=== PATIENT | female | born 1985 | race Asian ===

== ENCOUNTER 2023-05-02 11:22 | Outpatient (CLI) | payer BC ==
[2023-05-02] MEDS ORDERED: NO HOME MEDS (16:23)
== END 2023-05-02 23:59 | disposition home or self-care (01) ==
LOC: RAD 11:22
PROVIDERS: ATTEND Emergency Medicine
DX: K80.20 Calculus of gallbladder without cholecystitis without obstruction (principal); R10.11 Right upper quadrant pain
CPT/HCPCS: 76700

== ENCOUNTER 2023-05-02 12:19 | Inpatient (IN) | payer BC ==
[~2023-05-02] VITALS: Ht 157.5 cm; Wt 65.0 kg
[2023-05-02 12:40] LABS: BASOPHILS % (AUTO) 0.2 % (0-1); EOSINOPHILS # (AUTO) 0.1 X10'3 (0-0.9); EOSINOPHILS % (AUTO) 1.1 % (0-6); HEMATOCRIT 41.8 % (35.0-45.0); HEMOGLOBIN 14.2 g/dl (12.0-16.0); LYMPHOCYTES # (AUTO) 3.4 X10'3 (1.1-4.8); LYMPHOCYTES % (AUTO) 45.1 % (21-51); MEAN CORPUSCULAR HEMOGLOBIN 31.1 PG (27.0-31.0); MEAN CORPUSCULAR VOLUME 91.3 FL (78-98); MEAN PLATELET VOLUME 9.4 FL (7.4-10.4); MONOCYTES # (AUTO) 0.6 X10'3 (0-0.9); MONOCYTES % (AUTO) 7.6 % (2-12); NEUTROPHILS # (AUTO) 3.4 X10'3 (1.8-7.7); PLATELET COUNT 221 X10'3 (140-440); RED BLOOD COUNT 4.58 X10'6 (4.20-5.60); WHITE BLOOD COUNT 7.5 X10'3 (4.5-11.0)
[2023-05-02 13:05] LABS: ALANINE AMINOTRANSFERASE 21 U/L (12-78); ALBUMIN 4.1 G/DL (3.4-5.0); ALKALINE PHOSPHATASE 50 IU/L (46-116); AMYLASE 60 U/L (25-115); ANION GAP 7 (8-16); ASPARTATE AMINO TRANSFERASE 17 U/L (10-37); BILIRUBIN,TOTAL 0.4 MG/DL (0.1-1.0); BLOOD UREA NITROGEN 9 MG/DL (7-18); BUN/CREATININE RATIO 14.1 (10.0-20.0); CALCIUM 8.9 MG/DL (8.5-10.1); CHLORIDE 103 MMOL/L (99-107); CREATININE 0.64 MG/DL (0.40-0.90); GLUCOSE 91 MG/DL (70-104); POTASSIUM 3.7 MMOL/L (3.5-5.1); SODIUM 137 MMOL/L (135-145); TOTAL CARBON DIOXIDE 26.6 MMOL/L (24-32); TOTAL PROTEIN 8.3 G/DL (6.4-8.2); eCRCL 97 ML/MIN; eGFR > 90 ML/MIN
[2023-05-02] MEDS ORDERED: piperacillin/tazo 3.375gm/50ml 50 ML IV ONE (14:35)
[2023-05-02] MEDS ORDERED: acetaminophen 325mg tablet PO PRN (15:00)
[2023-05-02] MEDS ORDERED: ondansetron/PF 4mg/2ml inj IV PRN (15:00)
[2023-05-02] MEDS ORDERED: magnesium Cl slow-release 64mg tablet PO PRN (15:00)
[2023-05-02] MEDS ORDERED: morphine 2 MG/ML inj. syringe IV PRN ×2 (15:00)
[2023-05-02] MEDS ORDERED: magnesium 2GM in 50ml NS 50 ML IV PRN (15:00)
[2023-05-02] MEDS ORDERED: HYDROcodone/acetaminophen 10/325mg tab PO PRN (15:00)
[2023-05-02] MEDS ORDERED: mag hydrox/Alum hydrox/simeth 30ml oral suspension PO PRN (15:00)
[2023-05-02] MEDS ORDERED: potassium Cl 20 mEq SR tablet PO PRN ×2 (15:00)
[2023-05-02] MEDS ORDERED: potassium Cl 40MEQ/1/2NS 520ml 520 ML IV PRN (15:00)
[2023-05-02] MEDS ORDERED: HYDROcodone/acetaminophen 5mg/325mg tablet PO PRN (15:00)
[2023-05-02] MEDS ORDERED: magnesium hydroxide 30ml (MOM) UD suspension PO PRN (15:00)
[2023-05-02] MEDS ORDERED: magnesium 4gm in 100ml NS 100 ML IV PRN (15:00)
[2023-05-02] MEDS: normal saline 1000ml 1,000 ML IV SCH (15:40)
[2023-05-02 16:05] LABS: BILIRUBIN,URINE NEGATIVE (Neg); CLARITY,URINE SLIGHTLY CLOUDY (Clear); COLOR,URINE YELLOW (Yellow); GLUCOSE, URINE NEGATIVE (Neg); KETONES,URINE 40 mg/dl (Neg); LEUKOCYTE ESTERASE ,URINE NEGATIVE (Neg); NITRITES, URINE NEGATIVE (Neg); OCCULT BLOOD,URINE MODERATE (Neg); PROTEIN,URINE NEGATIVE (Neg); URINE HCG NEGATIVE (NEG); UROBILINOGEN,URINE 0.2 E.U/dL (0.2-1.0)
[2023-05-02 16:08] LABS: UA COLLECTION TYPE CLN CATCH MIDSTREAM
[2023-05-02 16:09] LABS: HYALINE CASTS 0-3 /LPF (NEGATIVE); MUCUS STRANDS MANY /LPF (Neg); SQUAMOUS EPITHELIAL CELL,UR MANY /LPF (FEW)
[2023-05-02 16:11] LABS: BACTERIA,URINE 1+ /HPF (Neg)
[2023-05-02] MEDS ORDERED: NO HOME MEDS (16:23)
--- NOTE | 2023-05-02 17:36 | NUR ---
PT PLACED ON HOSPITAL BED
[2023-05-02] MEDS: K and/or MAG REPLACEMENT MC SCH (19:47)
[2023-05-03] VITALS (24 sets, daily range): BP systolic 84–110; BP diastolic 42–65; PULSE 54–99; RESP 14–21; TEMP 97.7–98.9; O2SAT 97–100
--- NOTE | 2023-05-03 00:05 | NUR ---
CALLED TO GIVE REPORT ON PATIENT TO RECEIVING NURSE. TOLD THAT NURSE WAS WITH ANOTHER PATIENT AND THAT THEY WILL CALL BACK TO RECEIVE REPORT.
[2023-05-03] MEDS: metroNIDAZOLE-Flagyl 500mg/NS 100 ML IV SCH ×4 (01:18→23:22)
[2023-05-03 06:24] LABS: BASOPHILS % (AUTO) 0.4 % (0-1); EOSINOPHILS # (AUTO) 0.1 X10'3 (0-0.9); EOSINOPHILS % (AUTO) 1.8 % (0-6); HEMATOCRIT 37.2 % (35.0-45.0); HEMOGLOBIN 12.7 g/dl (12.0-16.0); LYMPHOCYTES % (AUTO) 40.3 % (21-51); MEAN CORPUSCULAR HEMOGLOBIN 30.9 PG (27.0-31.0); MEAN CORPUSCULAR VOLUME 90.9 FL (78-98); MONOCYTES # (AUTO) 0.7 X10'3 (0-0.9); MONOCYTES % (AUTO) 8.8 % (2-12); NEUTROPHILS # (AUTO) 3.7 X10'3 (1.8-7.7); NEUTROPHILS % (AUTO) 48.7 % (42-75); PLATELET COUNT 186 X10'3 (140-440); RED CELL DISTRIBUTION WIDTH 12.7 % (11.5-14.5); WHITE BLOOD COUNT 7.5 X10'3 (4.5-11.0)
[2023-05-03 06:47] LABS: ALANINE AMINOTRANSFERASE 18 U/L (12-78); ALBUMIN 3.2 G/DL (3.4-5.0); ALBUMIN/GLOBULIN RATIO 0.9 (1.1-1.5); ALKALINE PHOSPHATASE 41 IU/L (46-116); ANION GAP 6 (8-16); ASPARTATE AMINO TRANSFERASE 14 U/L (10-37); BILIRUBIN,TOTAL 0.5 MG/DL (0.1-1.0); BLOOD UREA NITROGEN 8 MG/DL (7-18); BUN/CREATININE RATIO 11.4 (10.0-20.0); CALCIUM 7.8 MG/DL (8.5-10.1); CHLORIDE 107 MMOL/L (99-107); GLUCOSE 75 MG/DL (70-104); MAGNESIUM 2.3 MG/DL (1.5-2.4); POTASSIUM 3.5 MMOL/L (3.5-5.1); SODIUM 139 MMOL/L (135-145); TOTAL CARBON DIOXIDE 25.8 MMOL/L (24-32); TOTAL PROTEIN 6.6 G/DL (6.4-8.2); eCRCL 89 ML/MIN; eGFR > 90 ML/MIN
--- NOTE | 2023-05-03 06:48 | NUR ---
Problems reprioritized. Patient report given, questions answered & plan of care reviewed with Florencio
[2023-05-03] MEDS: K and/or MAG REPLACEMENT MC SCH ×2 (06:52→20:00)
[2023-05-03] MEDS: normal saline 1000ml 1,000 ML IV SCH (08:47)
[2023-05-03] MEDS: CefTRIAXone 2gm/D5W 50ml BAG 50 ML IV SCH (08:57)
--- NOTE | 2023-05-03 09:12 | NUR ---
DR SANTANA ASKED ME TO PUT IN NPO NOW ORDER FOR SX THIS AFTERNOON
[2023-05-03] MEDS ORDERED: dextrose 50%-water 50ml dispensing syringe IV ONE (11:59)
[2023-05-03] MEDS ORDERED: BUPIVAcaine 0.5% inj/PF 30 ML ONE (17:46)
[2023-05-03] MEDS ORDERED: propofol inj 20 ML IV ONE (18:59)
[2023-05-03] MEDS ORDERED: midazolam 1 mg/ML 2ml injection ONE (18:59)
[2023-05-03] MEDS ORDERED: LIDOcaine 2% (20mg/ml) 5ml vial ONE (18:59)
[2023-05-03] MEDS ORDERED: fentaNYL/PF 50MCG/1 ML 2ML syringe ONE (18:59)
[2023-05-03] MEDS ORDERED: dexamethasone sod phosphate 4mg/ml inj. ONE (19:00)
[2023-05-03] MEDS ORDERED: sevoflurane 250ml liquid IH ONE (19:00)
[2023-05-03] MEDS ORDERED: ondansetron/PF 4mg/2ml inj ONE ×2 (19:11→20:06)
[2023-05-03] MEDS ORDERED: rocuronium 10mg/ml inj IV ONE (19:12)
[2023-05-03] MEDS ORDERED: ringers solution, lacted 1,000 ML IV SCH (19:15)
[2023-05-03] MEDS ORDERED: meperidine/PF 25mg/ml syringe IV PRN ×3 (19:15)
[2023-05-03] MEDS ORDERED: ondansetron/PF 4mg/2ml inj IV PRN ×2 (19:15→20:40)
[2023-05-03] MEDS ORDERED: morphine 4 MG/ML inj SYRINge IV PRN (19:15)
[2023-05-03] MEDS ORDERED: proCHLORperazine 10 MG/2 ml inj IV PRN (19:15)
[2023-05-03] MEDS ORDERED: meperidine/PF 25mg/ml syringe ONE (19:32)
[2023-05-03] MEDS ORDERED: BUPIVAcaine 0.5% inj/PF 30 ml vial IJ ONE (19:43)
[2023-05-03] MEDS ORDERED: ketorolac trometh. 30mg/ml inj. ONE (20:18)
--- NOTE | 2023-05-03 20:27 | NUR ---
Received from OR via BED, accompanied by Anesthesiologist DR MEANS and report given by Anesthesiologist AND PHOTOGRAPHIC EQUIPMENT TECHNICIAN. PT DROWSY, NO S/S OF DISTRESS/DISCOMFORT. ABDOMEN W/4 LAP SITES W/BANDAIDS CDI. Addendum: 05/03/23 at 2037 by Makenzie Mcallister RN Amended: Links added.
[2023-05-03] MEDS ORDERED: HYDROcodone/acetaminophen 5mg/325mg tablet PO PRN (20:40)
[2023-05-03] MEDS ORDERED: naloxone 0.4 mg/ml inj IV PRN (20:40)
[2023-05-03] MEDS: morphine 2 MG/ML inj. syringe IV PRN ×3 (20:53→23:09)
[2023-05-03] MEDS ORDERED: acetaminophen 1,000mg/100ml IV 100 ML IV ONE (21:00)
--- NOTE | 2023-05-03 22:07 | NUR ---
Report called to receiving nurse. Transferred via BED W/1 SMALL BAG OF Belongings SENT W/PT TO ROOM 3009, FAMILY MEMBER PRESENT. BLL, CALL LIGHT GIVEN TO PT, SIDE RAILS UP X 2, RECEIVING RN NOTIFIED OF PTS ARRIVAL. Special Issues communicated to receiving nurse. YES. Addendum: 05/03/23 at 2220 by Makenzie Mcallister RN Amended: Links added.
[2023-05-04 00:46] VITALS: BP 100/58; PULSE 89; RESP 17; TEMP 98.8; O2SAT 99
[2023-05-04 01:45] VITALS: BP 104/48; PULSE 88; RESP 16; TEMP 98.5; O2SAT 98
[2023-05-04 02:00] VITALS: BP 105/56; PULSE 82; RESP 18; TEMP 97.7; O2SAT 98
--- NOTE | 2023-05-04 03:30 | NUR ---
I AGREE WITH TONY ALSTON's ASSESSMENT.
[2023-05-04 06:06] VITALS: BP 102/50; PULSE 77; RESP 12; TEMP 98; O2SAT 99
[2023-05-04 06:12] LABS: HEMOGLOBIN 12.5 g/dl (12.0-16.0); MEAN CORPUSCULAR HGB CONC 33.8 g/dL (33.0-36.5); RED BLOOD COUNT 4.03 X10'6 (4.20-5.60)
--- NOTE | 2023-05-04 06:15 | NUR ---
Problems reprioritized. Patient report given to Florencio LOPEZ questions answered & plan of care reviewed with .
[2023-05-04 06:16] LABS: BASOPHILS % (AUTO) 0.1 % (0-1); EOSINOPHILS % (AUTO) 0 % (0-6); LYMPHOCYTES # (AUTO) 1.3 X10'3 (1.1-4.8); LYMPHOCYTES % (AUTO) 10.2 % (21-51); MEAN CORPUSCULAR VOLUME 91.8 FL (78-98); MEAN PLATELET VOLUME 9.3 FL (7.4-10.4); MONOCYTES # (AUTO) 0.2 X10'3 (0-0.9); MONOCYTES % (AUTO) 1.5 % (2-12); NEUTROPHILS # (AUTO) 10.8 X10'3 (1.8-7.7); NEUTROPHILS % (AUTO) 88.2 % (42-75); PLATELET COUNT 190 X10'3 (140-440); RED CELL DISTRIBUTION WIDTH 12.7 % (11.5-14.5); WHITE BLOOD COUNT 12.3 X10'3 (4.5-11.0)
[2023-05-04] MEDS: K and/or MAG REPLACEMENT MC SCH (06:33)
[2023-05-04 06:37] LABS: ALANINE AMINOTRANSFERASE 27 U/L (12-78); ALBUMIN 3.1 G/DL (3.4-5.0); ALBUMIN/GLOBULIN RATIO 0.9 (1.1-1.5); ALKALINE PHOSPHATASE 43 IU/L (46-116); ANION GAP 9 (8-16); ASPARTATE AMINO TRANSFERASE 23 U/L (10-37); BILIRUBIN,TOTAL 0.4 MG/DL (0.1-1.0); BLOOD UREA NITROGEN 8 MG/DL (7-18); BUN/CREATININE RATIO 11.9 (10.0-20.0); CALCIUM 7.6 MG/DL (8.5-10.1); CHLORIDE 105 MMOL/L (99-107); CREATININE 0.67 MG/DL (0.40-0.90); GLUCOSE 89 MG/DL (70-104); MAGNESIUM 2.2 MG/DL (1.5-2.4); POTASSIUM 4.1 MMOL/L (3.5-5.1); SODIUM 135 MMOL/L (135-145); TOTAL CARBON DIOXIDE 21.4 MMOL/L (24-32); TOTAL PROTEIN 6.5 G/DL (6.4-8.2); eCRCL 93 ML/MIN; eGFR > 90 ML/MIN
[2023-05-04] MEDS: normal saline 1000ml 1,000 ML IV SCH (07:00)
[2023-05-04] MEDS: metroNIDAZOLE-Flagyl 500mg/NS 100 ML IV SCH (08:47)
[2023-05-04 09:35] VITALS: RESP 12; O2SAT 99
[2023-05-04] MEDS: CefTRIAXone 2gm/D5W 50ml BAG 50 ML IV SCH (09:44)
[2023-05-04 11:11] VITALS: BP 94/46; PULSE 80; RESP 14; TEMP 98.1; O2SAT 96
[2023-05-04] MEDS ORDERED: HYDR-3965 PO (13:59)
== END 2023-05-04 14:24 | disposition home or self-care (01) | DRG 419 ==
LOC: ER 12:20 → ED HOLD 15:01 → PCU 3S 05-03 00:55
PROVIDERS: ADMIT Family Medicine; ATTEND Family Medicine
PROC: 0FT44ZZ Resection of Gallbladder, Percutaneous Endoscopic Approach (ICD-10-PCS; principal; 2023-05-03 19:00)
DX: K80.00 Calculus of gallbladder with acute cholecystitis without obstruction (principal); Z98.891 History of uterine scar from previous surgery; J45.909 Unspecified asthma, uncomplicated; Z91.013 Allergy to seafood; Z82.5 Family history of asthma and other chronic lower respiratory diseases
CPT/HCPCS: 99285; Z7506; Z7508; 36415; 74181; 80053; 81001; 81025; 82150; 82948; 83605; 83735; 84145; 85025; 86885; 86900; 86901; 87040; 87081; A4215; A4615; A4618; A7000; G0378; J0131; J0696; J1100; J1885; J2175; J2250; J2270; J2405; J2543; J2704; J3010; J3490; J7030; S0020